=== PATIENT | female | born 1960 | race Caucasian/White ===

== ENCOUNTER 2016-12-21 02:40 | Emergency (ER) | payer MEDICAID, OTHER ==
[~2016-12-21] VITALS: Ht 175.3 cm; Wt 63.5 kg
--- NOTE | 2016-12-21 03:08 | NUR ---
Gautam romo in ED - 12/21/16 at 0309 by RAVI Patient discharged to home in stable conditon. Written and verbal after care instructions given. Patient verbalizes understanding of instructions.
--- NOTE | 2016-12-21 03:09 | NUR ---
Patient given written and verbal discharge instructions. Patient verbalizes understanding of instructions. Patient is ambulatory with steady gait. Refuses offer of intermediate placement. Patient given list of available shelters in surrounding area.
[2016-12-21] MEDS ORDERED: SULFAMETH/TRIMETH 800/160 MG TABLET PO ONE (03:15)
[2016-12-21] MEDS ORDERED: TDAP DIPH,PERTUSS,TET VAC/PF 0.5 ML DISP.SYRIN IM ONE (03:15)
[2016-12-21] MEDS ORDERED: SULFAMETH/TRIMETH 800/160 MG TABLET ONE (03:19)
== END 2016-12-21 03:16 | disposition home or self-care (01) ==
LOC: ER 02:50
DX: S91.331A Puncture wound without foreign body, right foot, initial encounter (principal); F17.200 Nicotine dependence, unspecified, uncomplicated; Z59.0 Homelessness; L08.9 Local infection of the skin and subcutaneous tissue, unspecified; W22.8XXA Striking against or struck by other objects, initial encounter; Y93.89 Activity, other specified; Y92.9 Unspecified place or not applicable; Y99.9 Unspecified external cause status
CPT/HCPCS: 73630; A4663

== ENCOUNTER 2018-07-17 22:50 | Emergency (ER) | payer OTHER ==
[~2018-07-17] VITALS: Ht 165.1 cm; Wt 63.5 kg
--- NOTE | 2018-07-17 23:07 | NUR ---
Patient given written and verbal discharge instructions. Patient verbalizes understanding of instructions. Patient is ambulatory with steady gait. Refuses offer of senior care placement. Patient given list of available shelters in surrounding area.
[2018-07-17 23:10] VITALS: BP 129/78
== END 2018-07-17 23:11 | disposition home or self-care (01) ==
LOC: ER 22:51
DX: K08.89 Other specified disorders of teeth and supporting structures (principal); F17.200 Nicotine dependence, unspecified, uncomplicated; Z59.0 Homelessness
CPT/HCPCS: A4663

== ENCOUNTER 2019-03-17 14:02 | Emergency (ER) | payer OTHER ==
[~2019-03-17] VITALS: Ht 175.3 cm; Wt 61.2 kg
--- NOTE | 2019-03-17 14:21 | NUR ---
Patient ambulated fine with stable gait. Speech is clear, speaks in complete sentences. A/Ox4. Patient came for c/o LLE injury. Patient reported moving "stuff" around last night when something dropped straight on her foot. Now she is complaining of pain, denies any numbness or tingling in extremity and pulses are palpable.
[2019-03-17] MEDS ORDERED: IBUPROFEN 600 MG TABLET ONE (15:22)
--- NOTE | 2019-03-17 15:23 | NUR ---
Patient given written and verbal discharge instructions. Patient verbalizes understanding of instructions. Patient is ambulatory with steady gait. Refuses offer of long-term placement. Patient given list of available shelters in surrounding area.
[2019-03-17] MEDS ORDERED: IBUPROFEN 600 MG TABLET PO ONE (15:30)
== END 2019-03-17 15:26 | disposition home or self-care (01) ==
LOC: ER 14:04
DX: S90.32XA Contusion of left foot, initial encounter (principal); F17.200 Nicotine dependence, unspecified, uncomplicated; Z59.0 Homelessness; W20.8XXA Other cause of strike by thrown, projected or falling object, initial encounter; Y93.89 Activity, other specified; Y92.89 Other specified places as the place of occurrence of the external cause; Y99.8 Other external cause status
CPT/HCPCS: 73630; A4663

== ENCOUNTER 2021-04-19 16:57 | Emergency (ER) | payer OTHER ==
[~2021-04-19] VITALS: Ht 172.7 cm; Wt 61.2 kg
[2021-04-19] MEDS ORDERED: MORPHINE SULFATE 4 MG/1 ML DISP.SYRIN IV ONE (17:15)
--- NOTE | 2021-04-19 17:20 | NUR ---
Dr Oconnor at the bedside for MSE.
[2021-04-19] MEDS ORDERED: ONDANSETRON 4 MG/2 ML VIAL IV ONE (17:30)
[2021-04-19] MEDS ORDERED: PANTOPRAZOLE SODIUM 40 MG VIAL IV ONE (17:30)
[2021-04-19] MEDS ORDERED: IV NORMAL SALINE 1000 ML BAG IV ONE (17:30)
[2021-04-19 17:47] LABS: HEMATOCRIT 38.8 % (31.2-41.9); MEAN CORPUSCULAR HEMOGLOBIN 30.9 uug (24.7-32.8); MEAN CORPUSCULAR VOLUME 90.5 fL (75.5-95.3); PLATELET COUNT (AUTO) 348 K/uL (179-408)
[2021-04-19 17:53] LABS: CREATININE 0.9 mg/dL (0.6-1.3); POTASSIUM 3.9 mmol/L (3.5-5.1)
[2021-04-19] MEDS ORDERED: PANTOPRAZOLE SODIUM 40 MG VIAL ONE (17:53)
[2021-04-19] MEDS ORDERED: ONDANSETRON 4 MG/2 ML VIAL ONE (17:53)
[2021-04-19 17:59] LABS: BILIRUBIN,DIRECT 0.1 mg/dL (0.0-0.2); BILIRUBIN,TOTAL 0.4 mg/dL (0.2-1.0); TOTAL PROTEIN, SERUM 6.8 g/dL (6.4-8.2)
[2021-04-19] MEDS ORDERED: OMEP40CA21 PO (18:21)
[2021-04-19] MEDS ORDERED: LOPE-195 PO (18:21)
[2021-04-19] MEDS ORDERED: ONDA4TAB5 PO (18:21)
--- NOTE | 2021-04-19 18:30 | NUR ---
Pt states feeling better. Denies N/V/D.
[2021-04-19 18:35] VITALS: BP 117/60
--- NOTE | 2021-04-19 18:40 | NUR ---
Patient given written and verbal discharge instructions. Patient verbalizes understanding of instructions. Patient is ambulatory with steady gait. Refuses offer of residential placement. Patient given list of available shelters in surrounding area.
== END 2021-04-19 18:36 | disposition home or self-care (01) ==
LOC: ER 16:59
DX: R10.84 Generalized abdominal pain (principal); R19.7 Diarrhea, unspecified; I44.7 Left bundle-branch block, unspecified; Z59.01 Sheltered homelessness
CPT/HCPCS: 36415; 80048; 80076; 83690; 84484; 85025; 93005; 96361; 96374; 96375; 99284; C9113; J2405; 70030-TC; A4663; J7030

== ENCOUNTER 2021-06-10 03:05 | Emergency (ER) | payer OTHER ==
[~2021-06-10] VITALS: Ht 175.3 cm; Wt 61.2 kg
[~2021-06-10 03:05] MED LIST: LOPE-195 PO; OMEP40CA21 PO; ONDA4TAB5 PO
--- NOTE | 2021-06-10 03:50 | NUR ---
Patient came in to ER c/o bumps on the bottom of the lips. Denies pain at this time. VSS. NAD.
--- NOTE | 2021-06-10 04:00 | NUR ---
BRANDEE DINERO at bedside for MSE.
--- NOTE | 2021-06-10 04:36 | NUR ---
Patient refused to sign homeless waiver form.
--- NOTE | 2021-06-10 04:38 | NUR ---
Patient given written and verbal discharge instructions. Patient verbalizes understanding of instructions. Patient is ambulatory with steady gait. Refuses offer of longterm placement. Patient given list of available shelters in surrounding area. [facility]ILIP. DESTINEE.
[2021-06-10 04:40] VITALS: BP 146/94
== END 2021-06-10 04:40 | disposition home or self-care (01) ==
LOC: ER 03:09
DX: Z76.89 Persons encountering health services in other specified circumstances (principal); F22 Delusional disorders; Z59.00 Homelessness unspecified; F17.210 Nicotine dependence, cigarettes, uncomplicated
CPT/HCPCS: A4663

== ENCOUNTER → 2022-01-15 | Emergency (ER) | payer OTHER ==
[~2022-01-15] VITALS: Ht 175.3 cm; Wt 61.2 kg
[~2022-01-15] MED LIST changes: +AMOX500C2 PO; +NEOM10DR11 EACH EAR
--- NOTE | 2022-01-15 15:10 | NUR ---
pt in nad; denies pain. here for bilat. ear itchiness x 2 weeks
--- NOTE | 2022-01-15 15:25 | NUR ---
Patient discharged to home in stable condition. Written and verbal after care instructions given. Patient verbalizes understanding of instructions. Stressed follow up or return to ER for worsening s/s.
[2022-01-15 15:26] VITALS: BP 148/89
== END | disposition home or self-care (01) ==
LOC: ER 14:44
DX: H66.92 Otitis media, unspecified, left ear (principal); Z59.01 Sheltered homelessness; F17.200 Nicotine dependence, unspecified, uncomplicated
CPT/HCPCS: A4663

== ENCOUNTER 2022-11-26 00:45 | Emergency (ER) | payer OTHER ==
[~2022-11-26] VITALS: Ht 175.3 cm; Wt 54.4 kg
[2022-11-26 02:51] LABS: CALCIUM 8.5 mg/dL (8.5-10.1); POTASSIUM 3.5 mmol/L (3.5-5.1)
[2022-11-26 03:02] LABS: ALBUMIN 3.7 g/dL (3.4-5.0); BILIRUBIN,TOTAL 0.3 mg/dL (0.2-1.0); TOTAL PROTEIN, SERUM 7.3 g/dL (6.4-8.2)
[2022-11-26] MEDS ORDERED: TERB250T53 PO (03:51)
[2022-11-26 03:56] VITALS: BP 124/68; TEMP 97.8; O2SAT 0
== END 2022-11-26 03:58 | disposition home or self-care (01) ==
LOC: ER 00:49
DX: B35.1 Tinea unguium (principal); L60.8 Other nail disorders; F17.210 Nicotine dependence, cigarettes, uncomplicated; Z59.00 Homelessness unspecified; Z79.2 Long term (current) use of antibiotics; Z79.899 Other long term (current) drug therapy
CPT/HCPCS: 36415; A4663

== ENCOUNTER 2023-03-17 17:22 | Emergency (ER) | payer SELFPAY ==
[~2023-03-17] VITALS: Ht 175.3 cm; Wt 54.4 kg
[~2023-03-17 17:22] MED LIST changes: +TERB250T53 PO
[2023-03-17 17:47] VITALS: O2SAT 96
== END 2023-03-17 22:30 | disposition left against medical advice (07) ==
LOC: ER 17:25
DX: M54.9 Dorsalgia, unspecified (principal); Z53.21 Procedure and treatment not carried out due to patient leaving prior to being seen by health care provider
CPT/HCPCS: A4606; A4663

== ENCOUNTER 2024-07-16 20:57 | Emergency (ER) | payer OTHER ==
[~2024-07-16] VITALS: Ht 175.3 cm; Wt 59.0 kg
[~2024-07-16 20:57] MED LIST changes: +HYDR-4209 PO; +SULF1TAB48 PO
[2024-07-16 23:55] VITALS: BP 155/100; O2SAT 98
== END 2024-07-16 23:55 | disposition home or self-care (01) ==
LOC: ER 21:02
DX: R04.0 Epistaxis (principal); M25.551 Pain in right hip; F17.200 Nicotine dependence, unspecified, uncomplicated; G89.29 Other chronic pain; M21.941 Unspecified acquired deformity of hand, right hand; W18.39XA Other fall on same level, initial encounter; Y93.89 Activity, other specified; Y92.89 Other specified places as the place of occurrence of the external cause; Y99.8 Other external cause status
CPT/HCPCS: 73130; A4606; A4663

== ENCOUNTER 2024-07-20 23:28 | Emergency (ER) | payer OTHER ==
[~2024-07-20] VITALS: Ht 175.3 cm; Wt 59.0 kg
[2024-07-21] MEDS ORDERED: NEOM28.43 TP (00:51)
[2024-07-21] MEDS ORDERED: ACETAMINOPHEN 325 MG TABLET ONE (01:10)
[2024-07-21] MEDS ORDERED: NEOMY/BACITRA/POLYMYXIN B OINT UD PACKET TP ONE (01:10)
[2024-07-21] MEDS: ACETAMINOPHEN 325 MG TABLET PO ONE (01:13)
[2024-07-21] MEDS: NEOMY/BACITRA/POLYMYXIN B OINT UD PACKET TP ONE (01:13)
[2024-07-21 02:02] VITALS: BP 145/84; TEMP 98.3; O2SAT 95
== END 2024-07-21 02:02 | disposition home or self-care (01) ==
LOC: ER 23:32
DX: S90.934A Unspecified superficial injury of right lesser toe(s), initial encounter (principal); M25.551 Pain in right hip; R03.0 Elevated blood-pressure reading, without diagnosis of hypertension; F17.200 Nicotine dependence, unspecified, uncomplicated; Z59.01 Sheltered homelessness; X58.XXXA Exposure to other specified factors, initial encounter; Y93.89 Activity, other specified; Y92.89 Other specified places as the place of occurrence of the external cause; Y99.8 Other external cause status
CPT/HCPCS: A4606; A4663